=== PATIENT | female | born 1950 | race Caucasian/White ===

== ENCOUNTER 2017-03-23 13:21 | Emergency (ER) | payer MEDICARE, OTHER ==
[~2017-03-23] VITALS: Ht 175.3 cm; Wt 53.9 kg
[~2017-03-23 13:21] MED LIST: ALPR-475 PO; TOPI100T24 PO; TRAZ100T15 PO; VENL150C PO
[2017-03-23 13:25] VITALS: BP 145/71
[2017-03-23] MEDS ORDERED: IBUPROFEN 200 MG TABLET PO ONE (14:00)
== END 2017-03-23 14:33 | disposition home or self-care (01) ==
LOC: ED 14:27
DX: S93.492A Sprain of other ligament of left ankle, initial encounter (principal); I10 Essential (primary) hypertension; X50.1XXA Overexertion from prolonged static or awkward postures, initial encounter; Y93.89 Activity, other specified; Y92.098 Other place in other non-institutional residence as the place of occurrence of the external cause; Y99.8 Other external cause status
CPT/HCPCS: 29540; 99284

== ENCOUNTER → 2018-02-14 | Outpatient (CLI) | payer MEDICARE ==
[~2018-02-14] MED LIST changes: +TRAZ-137 PO; -TRAZ100T15 PO
== END | disposition home or self-care (01) ==
LOC: CFH 12:12 → EDSTATUS 12:45
PROVIDERS: ATTEND Internal Medicine
DX: R42 Dizziness and giddiness (principal)
CPT/HCPCS: 70450